=== PATIENT | female | born 1955 | race Caucasian/White ===

== ENCOUNTER 2024-03-14 06:22 | Day surgery (SDC) | payer MEDICARE, OTHER ==
[~2024-03-14] VITALS: Ht 162.6 cm; Wt 75.3 kg
[~2024-03-14 06:22] MED LIST: MIDAZOLAM HCL 5 MG/5 ML VIAL IV PRN; MIDAZOLAM HCL 5 MG/5 ML VIAL ONE; fentaNYL citrate 100 MCG/2 ML VIAL IV PRN; fentaNYL citrate 100 MCG/2 ML VIAL ONE
[2024-03-14] MEDS ORDERED: IBLOOD GLUCOSE TEST STRIP 1 EA TEST VI PRN (07:00)
[2024-03-14] MEDS ORDERED: LIDOCAINE HCL 1% 5 ML SDV INJ ONE (07:00)
[2024-03-14] MEDS ORDERED: LACTATED RINGER'S 1,000 ML IV SCH (07:00)
--- NOTE | 2024-03-14 07:36 | NUR ---
VISITED DURING SPIRITUAL CARE ROUNDS. PT EXHIBITING MINOR SIGNS OF NERVOUSNESS. PENS AND PENCILS REPAIRER PROVIDED SUPPORTIVE PRESENCE, REHAB THERAPIST EDUCATION, ANXIETY CONTAINENT, PRAYER. PT EXPRESSED GRATITUDE, APPEARED CALMER.
--- NOTE | 2024-03-14 08:50 | NUR ---
03/14/24 0850 Prasanna Guerrero [phone]: PT ARRIVED TO PACU VIA STRETCHER. PT DROWSY BUT RESPONDING TO QUESTIONS. PT ON RA AT THIS TIME SATS IN THE MID 90'S. PT HAS NO COMPLAINTS OF PAIN OR NAUSEA AT THIS TIME.
[2024-03-14 09:15] VITALS: BP 115/65
--- NOTE | 2024-03-15 09:31 | OR ---
[facility] [address], [place] [address] Signed DATE OF OPERATION: 03/14/2024 SURGEON: Torsten Ruiz MD PREOPERATIVE DIAGNOSES: 1. Father with history of colon cancer, at age 62. 2. Laparoscopic sigmoid resection in 2014. 3. Diverticulosis. 4. Personal history of colonic polyps. POSTOPERATIVE DIAGNOSES: 1. Colorectal anastomosis at 10 cm (EEA). 2. Minimal left-sided diverticulosis. PROCEDURE: Colonoscopy without biopsy. ESTIMATED BLOOD LOSS: None. INDICATIONS: Waqar is a 68-year-old female, asked to see me for a followup colonoscopy. She told me her was in [place] and they traveled quite extensively. She has had multiple colonoscopies in the past. She can recall at least 5. She is pretty certain her dad had colon cancer only to his brain and he at age 62. She also underwent a laparoscopic cholecystectomy for diverticulitis around 2014. She thinks her last colonoscopy was in 2018 at the age of 62. She tells me she has had precancerous polyps removed during her 1st colonoscopy and subsequently has had additional polyps removed. 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 This was around 2014. She currently has no lower GI symptoms. In the office, I had given her a pamphlet on colonoscopy. We had reviewed the nature of the test. There is risk including, but not limited to gas bloating, crampy abdominal pain, bleeding, perforation requiring surgery, and missed diagnosis. We also reviewed the written instructions for the bowel prep line by line. We had gone through her list of medications as well. She also understands the need for IV conscious sedation. She understands an adult person has to take her home afterwards. She had expressed understanding and wished to proceed. PROCEDURE IN DETAIL: Waqar was taken into our endoscopy suite and placed in the left lateral decubitus Electronically Signed By: TORSTEN RUIZ MD 03/15/24 0931 PATIENT NAME: WAQAR DAVIS OPERATIVE REPORT DATE OF : 55 REPORT #: [id number] PHYSICIAN: TORSTEN RUIZ MD PCP: ROSETTA PALENCIA DO REPORT IS CONFIDENTIAL AND NOT TO BE RELEASED WITHOUT AUTHORIZATION [facility] [address], [place] [address] Signed position. She was given a total of 6 mg of Versed and 125 mcg of fentanyl to cover the case. A digital rectal exam was performed, this was unremarkable. No external hemorrhoids. She had good sphincter tone. There were no masses. The adult colonoscope was introduced and advanced all around into the cecum under direct visualization of the camera without difficulty. Her prep was quite excellent. We could easily see the appendiceal orifice. We could easily see the ileocecal valve. The scope was then slowly withdrawn. We took several pictures throughout for photodocumentation. I saw just two small diverticula in her left colon. They were small in size. Her colorectal anastomosis is at 10 cm. It appears to be an EEA stapled anastomosis. It is well healed. There are no issues with ulceration, granulation tissue or exposed juju. The rectum itself was unremarkable. The adult colonoscope was retroflexed and we saw no additional pathology above the anal canal. After this, the gas was suctioned out and the colonoscope removed. Waqar tolerated the procedure quite well. RECOMMENDATION: Waqar will follow up in 5 years for repeat colonoscopy based on her personal and family history. MD ABBEY Guerrier/TANESHAL /[id number] cc: DO Torsten Wilkerson MD Copies: ROSETTA PALENCIA ANDREW L MD ~ Electronically Signed By: TORSTEN RUIZ MD 03/15/24 0931 PATIENT NAME: WAQAR DAVIS OPERATIVE REPORT DATE OF : 55 REPORT #: [id number] PHYSICIAN: TORSTEN RUIZ MD PCP: ROSETTA PALENCIA DO REPORT IS CONFIDENTIAL AND NOT TO BE RELEASED WITHOUT AUTHORIZATION
== END 2024-03-14 09:25 | disposition home or self-care (01) ==
LOC: DS 06:22
PROVIDERS: ATTEND Colon & Rectal Surgery
PROC: 0DJD8ZZ Inspection of Lower Intestinal Tract, Via Natural or Artificial Opening Endoscopic (ICD-10-PCS; principal; 2024-03-14)
DX: K63.89 Other specified diseases of intestine (principal); K57.30 Diverticulosis of large intestine without perforation or abscess without bleeding; E78.2 Mixed hyperlipidemia; G47.33 Obstructive sleep apnea (adult) (pediatric); K21.9 Gastro-esophageal reflux disease without esophagitis; I12.9 Hypertensive chronic kidney disease with stage 1 through stage 4 chronic kidney disease, or unspecified chronic kidney disease; E11.22 Type 2 diabetes mellitus with diabetic chronic kidney disease; N18.31 Chronic kidney disease, stage 3a; Z80.0 Family history of malignant neoplasm of digestive organs; Z86.010 Personal history of colon polyps; Z90.49 Acquired absence of other specified parts of digestive tract; Z90.3 Acquired absence of stomach [part of]
CPT/HCPCS: 99153; G0500; J2250; J3010; J7121